=== PATIENT | male | born 1970 | race African-American/Black ===

== ENCOUNTER → 2017-03-18 | Outpatient (CLI) | payer OTHER ==
[~2017-03-18] MED LIST: AMLODIPINE BESYL5 MG PO; BENTYL10 MG DOB; OMEPRAZOLE40 M1 PO
== END | disposition home or self-care (01) ==
LOC: CECH 02-10 10:45 → CEKG 02-17 11:00 → CECH 02-18 10:00
DX: R00.2 Palpitations (principal); I49.8 Other specified cardiac arrhythmias; I49.1 Atrial premature depolarization; I49.3 Ventricular premature depolarization
CPT/HCPCS: 93225; 93226

== ENCOUNTER → 2017-03-19 | Outpatient (CLI) | payer OTHER ==
--- NOTE | ~2017-03-19 | HM ---
Unit #: [id number] #: [id number] Patient: ÓSCAR CHAIDEZ [id number] [address] [address] [id number] O MR#: [id number] NAME: ÓSCAR CHAIDEZ : 1970 SEX: M STUDY DATE/TIME: 03/19/2017 UNIT: [facility] ROOM: STUDY DESCRIPTION: Holter Monitor Attending Physician: Tiago Crawley Jr., Jose Miguel Referring Physician: Tiago Crawley Jr., A.P.R.N. Primary Care Physician: Tiago Crawley Jr., A.P.R.N. CARDIOLOGY REPORT EXAM Holter Monitor DATE APPLIED 03/19/2017 DATE SCANNED 03/25/2017 ORDERED BY Tiago Crawley Jr., INTERNAL CONTROLS ANALYST READ BY Dr. Panda Baez REASON FOR TEST COMMENTS 1. Underlying rhythm is normal sinus. Average heart rate is 76 beats per minute with a slowest recorded heart rate of 46 beats per minute and maximal recorded heart rate of 127 beats per minute. 2. Rare premature ventricular contractions are noted with a total of 387 isolated PVCs in 24 hours. No premature ventricular couplets or runs of ventricular tachycardia recorded. 3. Rare premature atrial contractions are noted with 90 isolated PACs. 4. Sinus arrhythmia is noted which is normal for the patient's age. 5. There is no significant slowing of the heart rate, sinus arrest or sinus pause. 6. The patient did not report any symptom or activity diary. IMPRESSION 24 hour ambulatory monitoring is within normal limits with very rare PACs and very rare PVCs. Dictated by... Leo Rivers Unit #: [id number] #: [id number] Patient: ÓSCAR CHAIDEZ TD: 03/27/2017 08:46 JOB #: [id number] CC: Tiago Crawley Jr., A.P.R.N. CARDIOLOGY REPORT Page 1 of 1 X Adam Baez MD HOLTER MONITOR REPORT
== END | disposition home or self-care (01) ==
LOC: CECH 12:58
DX: I49.8 Other specified cardiac arrhythmias (principal); I36.1 Nonrheumatic tricuspid (valve) insufficiency; I37.1 Nonrheumatic pulmonary valve insufficiency
CPT/HCPCS: 93225; 93226; 93306